=== PATIENT | male | born 1970 | race Caucasian/White ===

== ENCOUNTER 2020-05-07 08:24 | Day surgery (SDC) | payer OTHER ==
[2020-05-05 09:39] VITALS: BMI 28.5
--- NOTE | 2020-05-07 07:48 | P.GSHP ---
History of Present Illness H&P Date: 05/07/20 CHIEF COMPLAINT: Chest wall cancer HISTORY OF PRESENT ILLNESS: The patient is a 50 year-old male with history of cancer along the chest wall lesion. He presents today for surgical excision. PAST MEDICAL HISTORY: Please see list. PAST SURGICAL HISTORY: Please see list. MEDICATIONS: Please see list. ALLERGIES: Please see list. SOCIAL HISTORY: No illicit drug use FAMILY HISTORY: No reports of Crohn disease or ulcerative colitis. REVIEW OF ORGAN SYSTEMS: CONSTITUTIONAL: No reports of fevers or chills. GI: Denies any blood in stools or constipation. PHYSICAL EXAM: VITAL SIGNS: Stable SKIN: Well perfused. Good skin turgor. 1 cm lesion overlying the left chest wall. Musculoskeletal: No clubbing cyanosis or edema GENERAL: Well developed and in no acute distress. Pleasant. HEENT: No sclera icterus. Extraocular movements grossly intact. Moist buccal mucosa. Head is atraumatic, normocephalic. Hears conversational speech. No nasal drainage. NECK: Supple without lymphadenopathy. No JV distention. CHEST: Non-labored respirations and equal bilateral excursions. CARDIOVASCULAR: Regular rate and rhythm. Palpable 2+ radial pulses. ABDOMEN: Soft. Non-tender. Nondistended. NEUROLOGIC: No focal or lateralizing signs. PSYCH: Appropriate affect. Alert and oriented to person, place and time. ASSESSMENT: 1. Left chest wall cancer PLAN: 1. Will proceed of excision of the left chest wall 2. DVT prophylaxis. 3. Antibiotic prophylaxis. 4. Time of recovery, at least one week. Past Medical History Past Medical History: Cancer, GERD/Reflux, Hypertension Additional Past Medical History / Comment(s): migraines. BASAL CELL CANCER CHEST AREA. SURFACE BLOOD CLOTS IN VARICOSE VEINS History of Any Multi-Drug Resistant Organisms: None Reported Past Surgical History: No Surgical Hx Reported Additional Past Surgical History / Comment(s): COLONOSCOPY Past Anesthesia/Blood Transfusion Reactions: No Reported Reaction Smoking Status: Former smoker - Past Family History Mother Family Medical History: No Reported History Additional Family Medical History / Comment(s): ADOPTED Medications and Allergies Home Medications Medication Instructions Recorded Confirmed Type Cholecalciferol [Vitamin D3 (25 1,000 unit PO DAILY 05/05/20 05/05/20 History Mcg = 1000 Iu)] Fexofenadine HCl [Chaparrita Allergy] 180 mg PO DAILY 05/05/20 05/05/20 History Losartan [Cozaar] 50 mg PO DAILY 05/05/20 05/05/20 History Magnesium Oxide [Mag-Ox] 250 mg PO DAILY 05/05/20 05/05/20 History Omeprazole [PriLOSEC] 40 mg PO DAILY 05/05/20 05/05/20 History Topiramate [Topamax] 100 mg PO DAILY 05/05/20 05/05/20 History Allergies Allergy/AdvReac Type Severity Reaction Status Date / Time adhesive tape Allergy SKIN Verified 05/05/20 09:41 BLISTERS bee venom protein (honey bee) Allergy Anaphylaxis Verified 05/05/20 09:41
[~2020-05-07 08:24] MED LIST: ACETAMINOPHEN TAB 500 MG TAB PO STA; DEXAMETHASONE SOD PHOSPHATE 10 MG/ML 1 ML VIAL IV ONE; GABAPENTIN 300 MG CAP PO STA; HYDROmorphone 0.5 MG/0.5 ML SYRINGE IVP PRN; LACTATED RINGERS 1,000 ML IV SCH; ONDANSETRON 4 MG/2 ML VIAL IVP ONE; Pre Op ABX Message 1 EACH MISC MISCELLANE ONE
[2020-05-07] MEDS ORDERED: ONDANSETRON 4 MG/2 ML VIAL ONE (09:13)
[2020-05-07] MEDS ORDERED: ACETAMINOPHEN TAB 500 MG TAB ONE (09:13)
[2020-05-07 09:52] LABS: Basophils % (A) 1 %; Eosinophils # (A) 0.1 k/uL (0-0.7); Eosinophils % (A) 2 %; HGB 14.3 gm/dL (13.0-17.5); Lymphocytes # (A) 2.1 k/uL (1.0-4.8); Lymphocytes % (A) 30 %; MCH 30.7 pg (25.0-35.0); MCHC 33.4 g/dL (31.0-37.0); MCV 91.9 fL (80.0-100.0); Mean Platelet Volume 8.9; Monocytes # (A) 0.4 k/uL (0-1.0); Monocytes % (A) 6 %; Neutrophils # (A) 4.3 k/uL (1.3-7.7); Neutrophils % (A) 61 %; Platelet Count 286 k/uL (150-450); RBC 4.68 m/uL (4.30-5.90); RDW 12.9 % (11.5-15.5); WBC 7.2 k/uL (3.8-10.6)
[2020-05-07] MEDS ORDERED: PROPOFOL 10 MG/ML 20 ML VIAL IV ONE (10:19)
[2020-05-07] MEDS ORDERED: fentaNYL (PF) 50 MCG/ML 2 ML AMP ONE (10:19)
[2020-05-07] MEDS ORDERED: LIDOCAINE 1% INJ 10MG/ML (20 ML MDV) ONE (10:19)
[2020-05-07] MEDS ORDERED: DEXAMETHASONE SOD PHOSPHATE 10 MG/ML 1 ML VIAL ONE (10:19)
[2020-05-07] MEDS ORDERED: KETOROLAC 30 MG/ML 1 ML VIAL ONE (10:19)
[2020-05-07] MEDS ORDERED: MIDAZOLAM 2 MG/2 ML VIAL ONE (10:19)
[2020-05-07] MEDS ORDERED: diphenhydrAMINE 50 MG/ML 1 ML VIAL ONE (10:19)
[2020-05-07] MEDS ORDERED: BUPIVACAIN-EPI 0.25%-1:200,000 30 ML VIAL SQ ONE (10:47)
--- NOTE | 2020-05-07 11:42 | P.OP ---
Date of Procedure: 05/07/20 Description of Procedure: SURGEON: TIKA RUBIN MD OPTION TRADER: None. PREOPERATIVE DIAGNOSES: 1. Basal cell cancer, left chest wall 2. Gastroesophageal reflux disease 3. Hypertensive heart disease POSTOPERATIVE DIAGNOSES: 1. Basal cell cancer, left chest wall 2. Gastroesophageal reflux disease 3. Hypertensive heart disease PROCEDURES PERFORMED: 1. Excision of left chest wall basal cell cancer with margins, 10 x 4 cm. 2. Complex closure of 10 cm incision along the chest wall. ANESTHESIA: GETA and local ESTIMATED BLOOD LOSS: 20 mL. SPECIMENS REMOVED: Left chest wall basal cell cancer, short superior, long medial COMPLICATIONS: None. INDICATIONS: The patient is a 50-year-old male who presents with biopsy-proven basal cell cancer of the chest wall. Now he presents for surgical intervention. Benefits and risks of surgical intervention were described including bleeding, recurrence, infection, scarring, cosmetic deformity reviewed. Informed consent was obtained. DESCRIPTION OR PROCEDURE: Patient was brought into the operating room, laid in supine position. After general induction, the chest was prepped and draped in a standard sterile fashion with ChloraPrep. Timeout protocol was confirmed with the surgical team regarding the patient's name, procedure to be performed including preoperative medications. DVT prophylaxis was confirmed. A field block was placed of the left chest wall just inferior to the clavicle after indelible marker placing margins of 0.5-1 cm. For complete excision with closure, measurement 10 x 4 cm elliptical excision was proposed. An elliptical transverse incision using #15 blade was made along the marking into the dermis and subcutaneous tissue. Electro-Bovie cartridge was used to excise the lesion down to the simultaneous tissue. Superior and inferior subcutaneous skin flaps were made for undermining for closure without tension. Deep subcutaneous tissue closure #1 Vicryl followed by 3-0 Vicryl was placed in interrupted fashion. Running suture of 4-0 Monocryl was placed along the dermis. The skin was cleansed and Exofin tape was applied followed by Optifoam. Local anesthetic was placed. At the end of the procedure, needle, sponge, and instrument count was verified correct by surgical scrub technician. The patient was awoken and taken to the second stage postanesthesia care unit. The patient tolerated the procedure well. FINDINGS: 1. Basal cell cancer proven lesion along left chest wall excised with margins 0.5-1 cm, 10 cm x 4 cm 2. Specimen oriented long medial, short superior Plan - Discharge Summary Discharge Rx Participant: No New Discharge Prescriptions: Continue Fexofenadine HCl [Chaparrita Allergy] 180 mg PO DAILY Cholecalciferol [Vitamin D3 (25 Mcg = 1000 Iu)] 1,000 unit PO DAILY Omeprazole [PriLOSEC] 40 mg PO DAILY Losartan [Cozaar] 50 mg PO DAILY Topiramate [Topamax] 100 mg PO DAILY Magnesium Oxide [Mag-Ox] 250 mg PO DAILY Discharge Medication List Cholecalciferol [Vitamin D3 (25 Mcg = 1000 Iu)] 1,000 unit PO DAILY 05/05/20 [History] Fexofenadine HCl [Chaparrita Allergy] 180 mg PO DAILY 05/05/20 [History] Losartan [Cozaar] 50 mg PO DAILY 05/05/20 [History] Magnesium Oxide [Mag-Ox] 250 mg PO DAILY 05/05/20 [History] Omeprazole [PriLOSEC] 40 mg PO DAILY 05/05/20 [History] Topiramate [Topamax] 100 mg PO DAILY 05/05/20 [History] Patient Instructions/Handouts: *Surgery [facility] - (Anesthesia) Discharge Instructions Outpatient Surgery, Excision of Skin Lesion (DC) Activity/Diet/Wound Care/Special Instructions: Do not remove dressing. May shower. No bath tub soaks. No wide motions of the left arm. Dressings will be removed in the office Discharge Disposition: HOME SELF-CARE
[2020-05-08 08:38] VITALS: BP 116/80; PULSE 52; RESP 16; TEMP 97.5
== END 2020-05-07 12:52 | disposition home or self-care (01) ==
LOC: OR 08:24
PROVIDERS: ATTEND Surgery Plastic and Reconstructive Surgery
DX: C44.519 Basal cell carcinoma of skin of other part of trunk (principal); I11.9 Hypertensive heart disease without heart failure; K21.9 Gastro-esophageal reflux disease without esophagitis; G43.909 Migraine, unspecified, not intractable, without status migrainosus; I83.90 Asymptomatic varicose veins of unspecified lower extremity; Z91.048 Other nonmedicinal substance allergy status; Z91.030 Bee allergy status; Z87.891 Personal history of nicotine dependence; Z79.899 Other long term (current) drug therapy; Z98.890 Other specified postprocedural states
CPT/HCPCS: 88305; 85025; 11606; 13101; 13102; J2250; J1200; J1100; J0690; J2405; J2001; J3010; J1885; J2704

== ENCOUNTER → 2020-11-04 | Outpatient (CLI) | payer OTHER ==
--- NOTE | 2020-11-05 07:17 | MR ---
EXAMINATION TYPE: MR brain wo/w maiteine wo DATE OF EXAM: 11/04/2020 COMPARISON: CT brain and cervical spine April 06, 2015 HISTORY: Worsening Migraine headaches and neck pain. TECHNIQUE: Multiplanar, multisequence images of the brain and brainstem is performed without and with IV contras t, utilizing 9.5 mL intravenous Gadavist . MRI cervical spine without contrast. FINDINGS: Brain: Diffusion weighted images demonstrate no evidence of a recent infarct or other diffusion abnormality. There is no worrisome extra-axial fluid collection. The ventricular system and cisternal spaces ar e normal in size and appearance. The brain volume is age appropriate. A few small scattered foci of T2 hyperintensity is seen throughout the white matter bilaterally. Approximately 20 scattered lesions are seen. Lesions are nonspecific in appearance and distribution. Midline structures demonstrate normal morphology. The craniocervical junction appears within normal limits. Post contrast images demonstrate no abnormal enhancement. The dural venous sinuses appear pa tent. Large mucous retention cyst or polyp in the inferior right maxillary sinus otherwise paranasal sinuses are clear. Globes are intact bilaterally. IMPRESSION: Mild to borderline moderate nonspecific white matter changes. Findings could be on the ba sis of altered vascular mechanics related to product of migraine headaches. Chronic right maxillary s inus disease. No suspicious enhancement. C-SPINE: FINDINGS: Slight dextroconvex scoliotic curvature centered in the upper thoracic spine is redemonstra princess on coronal images. Sagittal images of the cervical spine show the craniocervical junction to han in within normal limits. The cervical and upper thoracic spinal cord is normal in caliber and signal . Vertebral alignment is satisfactory on sagittal images. The vertebral body and intravertebral disk heights remain normal. The bone marrow signal intensity is within normal limits. Axial images show there is no significant focal disk disease, spinal canal stenosis, neural foraminal narrowing, or spinal cord compromise at any cervical level. IMPRESSION: Slight scoliotic curvature otherwise unremarkable study.
== END | disposition home or self-care (01) ==
LOC: RADMRIMAIN 16:53
PROVIDERS: ATTEND Physician Assistant
DX: R90.82 White matter disease, unspecified (principal); J32.0 Chronic maxillary sinusitis; M41.82 Other forms of scoliosis, cervical region; Z91.018 Allergy to other foods; Z91.02 Food additives allergy status
CPT/HCPCS: 70553; 72141; A9585

== ENCOUNTER → 2021-10-21 | Outpatient (CLI) | payer OTHER ==
--- NOTE | 2021-10-21 11:13 | XR ---
EXAMINATION TYPE: XR shoulder complete 3 views LT, XR humerus 2 views LT DATE OF EXAM: 10/21/2021 Comparison: None Clinical History: 51-year-old male R22.30 L upper extremity mass Findings: Left shoulder: AC joint appears intact. Subacromial space is preserved. No tendinous or bursal calcifications. No ac kristi fracture, subluxation, or dislocation. Visualized left hemithorax is clear. Left humerus: No acute fracture. Elbow articulation appears intact. No elbow joint effusion. No soft tissue calcifi cations are identified. IMPRESSION (left shoulder and humerus): No acute osseous abnormality seen. If concern for a soft tissue mass, consider targeted ultrasound.
== END | disposition home or self-care (01) ==
LOC: RADXRMAIN 08:19
PROVIDERS: ATTEND Physician Assistant
DX: R22.30 Localized swelling, mass and lump, unspecified upper limb (principal)

== ENCOUNTER → 2021-11-18 | Outpatient (CLI) | payer OTHER ==
--- NOTE | 2021-11-18 08:08 | CT ---
EXAMINATION TYPE: CT chest wo con DATE OF EXAM: 11/18/2021 COMPARISON: Chest CT April 06, 2015 HISTORY: Chest Pain CT DLP: 614.6 mGycm. Automated Exposure Control for Dose Reduction was Utilized. TECHNIQUE: CT scan of the thorax is performed without IV contrast. FINDINGS: LUNGS: Peripheral bleb right upper lung axial image 19 is stable. No new suspicious focal consolidati on or groundglass opacity. Stable 6 mm ground glass nodule medial right lower lobe axial image 54 pr esumed benign given stability since 2015 study. Just superior and to the right of this there is stabl e 4 mm right lower lobe nodule axial image 49. Stable 2 to 3 mm right middle lobe nodule axial image 41. No new greater than 5 mm pulmonary nodules are present. There is no pleural effusion or pneumotho rax seen. The tracheobronchial tree is patent. MEDIASTINUM: Lack of IV contrast is noted to limit evaluation for mediastinal and especially hilar ad enopathy. There are no definitive new Greater than 1 cm mediastinal lymph nodes. No cardiomegaly or pericardial effusion is seen. Mild to moderate focal calcified plaque in the LAD is more prominent f rom 2014 study. Correlate with additional cardiac risk factors. OTHER: Roughly 9 mm thin-walled cyst in the liver axial image 61 is stable. Mild multilevel spurring in the spine. IMPRESSION: No acute findings are evident.
[2021-11-18 08:35] LABS: HCT 47.8 % (39.0-53.0); HGB 15.6 gm/dL (13.0-17.5); MCH 30.6 pg (25.0-35.0); MCHC 32.7 g/dL (31.0-37.0); MCV 93.8 fL (80.0-100.0); Mean Platelet Volume 7.6; Platelet Count 284 k/uL (150-450); RBC 5.09 m/uL (4.30-5.90); RDW 12.7 % (11.5-15.5); WBC 6.7 k/uL (3.8-10.6)
[2021-11-18 17:51] LABS: African American GFR (CKD) 90.2 (60.0-200.0); Carbon Dioxide 19.3 mmol/L (20.0-27.5); Glucose 100 mg/dL (70-110); Non-African American GFR(CKD) 77.9 (60.0-200.0); Potassium 4.4 mmol/L (3.5-5.5); Sodium 141 mmol/L (135-145)
[2021-11-18 19:48] LABS: ALT 24 U/L (10-49); AST 18 U/L (14-35)
[2021-11-18 20:07] LABS: Rheumatoid Factor, Qnt <10 IU/mL (0-15)
== END | disposition home or self-care (01) ==
LOC: RADCTMAIN 07:17
PROVIDERS: ATTEND Physician Assistant
DX: R07.9 Chest pain, unspecified (principal)
CPT/HCPCS: 71250; 82247; 82374; 82565; 82947; 83036; 83718; 83721; 84132; 84295; 84450; 84460; 84478; 85027; 86431

== ENCOUNTER → 2021-12-10 | Outpatient (CLI) | payer OTHER ==
--- NOTE | 2021-12-10 15:56 | MR ---
EXAMINATION TYPE: MR shoulder LT wo con DATE OF EXAM: 12/10/2021 COMPARISON: Plain film 10/21/2021 HISTORY: Left shoulder pain and lack of movement TECHNIQUE: Multiplanar, multisequence imaging of the left shoulder is performed without contrast. FINDINGS: Rotator Cuff: There is increased signal at the intrasubstance portion of the supraspinatus tendon, co benjie image #16 and 15 suggesting partial undersurface tear. Acromioclavicular Joint: Arthropathy of the acromioclavicular joint causes mass effect on the musculo tendinous junction of supraspinatus. There is a distal acromial spur. Glenohumeral Joint: Intact Labrum: Posterior labrum on axial image #16 and 17 shows some fluid signal suggesting tear Biceps Tendon: The long head of biceps is in normal location within bicipital groove, fluid signal is present along the tendon. Bone marrow signal: Pseudocysts are present within the humeral head. Other: Inferior glenohumeral ligament shows abnormal signal, likely at least partially torn. Fluid si gnal is present in the subacromial subdeltoid bursa. IMPRESSION: Findings consistent with partial undersurface tear the rotator cuff. Inferior glenohumeral ligament t ear. Small tear of the posterior glenoid labrum. Correlate for impingement.
== END | disposition home or self-care (01) ==
LOC: RADMRIMAIN 07:44
PROVIDERS: ATTEND Physician Assistant
DX: M75.112 Incomplete rotator cuff tear or rupture of left shoulder, not specified as traumatic (principal)

== ENCOUNTER → 2022-01-07 | Outpatient (CLI) | payer OTHER ==
--- NOTE | 2022-01-07 12:15 | MR ---
MRI left brachial plexus with and without contrast HISTORY: Injury to brachial plexus, left shoulder pain, frozen shoulder correlation to MRI left shoulder Multiplanar multisequence and postcontrast images obtained through the brachioplexus on 10 cc Gadavis t IV. Review of the left shoulder MRI does show cortical humeral ligament thickening which can be seen in a dhesive capsulitis consistent with patient's history of frozen shoulder Extensive artifact is present over the exam No evident mass along the brachial plexus. No evident abnormal hyperintensity and T2-weighted sequenc es. No abnormal enhancement. No evident abnormal fluid collections to suggest pseudomeningocele. No c ervical adenopathy or supraclavicular adenopathy evident. There is no evident apical tumor at the lef t hemithorax. Arthropathy noted at the acromioclavicular joint on the left. IMPRESSION: Findings consistent with patient's history of frozen shoulder. No brachial plexus abnorma lity is evident within the limitation of the exam.
== END | disposition home or self-care (01) ==
LOC: RADMRIMAIN 07:47
PROVIDERS: ATTEND Physician Assistant
DX: S14.3XXA Injury of brachial plexus, initial encounter (principal); X58.XXXA Exposure to other specified factors, initial encounter
CPT/HCPCS: 71552; A9585

== ENCOUNTER → 2022-05-05 | Outpatient (CLI) | payer OTHER ==
[2022-05-05 16:16] LABS: Basophils # (A) 0.04 X 10*3/uL (0.00-0.10); Basophils % (A) 0.6 %; Eosinophils # (A) 0.15 X 10*3/uL (0.04-0.35); Eosinophils % (A) 2.2 %; HCT 44.9 % (39.6-50.0); HGB 14.2 g/dL (13.0-17.0); Immature Grans, Automated 0.3 %; Lymphocytes # (A) 2.05 X 10*3/uL (0.90-5.00); Lymphocytes % (A) 29.8 %; MCH 28.9 pg (27.0-32.0); MCHC 31.6 g/dL (32.0-37.0); MCV 91.4 fL (80.0-97.0); Mean Platelet Volume 11.5 fL (9.5-12.2); Monocytes # (A) 0.49 X 10*3/uL (0.20-1.00); Monocytes % (A) 7.1 %; NRBC Per 100 WBC 0 /100 WBCS (0.0-0.0); Neutrophils # (A) 4.13 X 10*3/uL (1.80-7.70); Platelet Count 339 X 10*3/uL (140-440); RBC 4.91 X 10*6/uL (4.40-5.60); RDW 13.5 % (11.5-14.5); WBC 6.88 X 10*3/uL (4.50-10.00)
[2022-05-05 17:06] LABS: Anion Gap 12.7 mmol/L (10.00-18.00); Carbon Dioxide 22.1 mmol/L (20.0-27.5); Potassium 4.2 mmol/L (3.5-5.5)
== END | disposition home or self-care (01) ==
LOC: LABWHC1 08:40
PROVIDERS: ATTEND Orthopaedic Surgery
DX: Z01.812 Encounter for preprocedural laboratory examination (principal); M75.42 Impingement syndrome of left shoulder
CPT/HCPCS: 36415; 80051; 85025; 93005

== ENCOUNTER 2022-05-19 07:16 | Day surgery (SDC) | payer OTHER ==
[2022-05-17 15:58] VITALS: BMI 28.5
--- NOTE | 2022-05-18 15:35 | HP ---
HISTORY AND PHYSICAL Carlos Eduardo Madrid a 52-year-old patient seen with progressive left shoulder pain. We discussed options for treatment. He elected to proceed with left shoulder arthroscopy. Consent obtained. PAST MEDICAL HISTORY: Hypertension. PAST SURGICAL HISTORY: Surgical history is noncontributory. DAILY MEDICATIONS: Losartan. ALLERGIES: ADHESIVES. SOCIAL HISTORY: He denies tobacco use. PHYSICAL EVALUATION OF THE LEFT SHOULDER: Flexion is 100 degrees, abduction is 80 degrees. External rotation is 25 degrees with pain and weakness. Tenderness along the anterior lateral acromion and acromioclavicular joint as well as rotator cuff insertion site. Impingement positive 80 degrees. Drop-arm sign is positive. Cross-body adduction sign is positive. Distal neurovascular exam is intact. RADIOGRAPHS: Radiographs of the left shoulder reveal a type 2 acromion, acromioclavicular joint osteoarthritis and cystic changes of the tuberosity. MRI left shoulder partial rotator cuff tear, acromioclavicular joint osteoarthritis and labral tear. IMPRESSION: 1. Left shoulder impingement with partial rotator cuff tear. 2. Left shoulder acromioclavicular joint osteoarthritis. 3. Left shoulder labral tear. 4. Hypertension. PLAN: Left shoulder arthroscopy with subacromial decompression, possible arthroscopic rotator cuff repair, Waylon procedure and debridement. Surgery scheduled for 05/19/2022. MMODL / IJN: [id number] /
[2022-05-19] MEDS ORDERED: ONDANSETRON 4 MG/2 ML VIAL ONE (07:39)
[2022-05-19] MEDS ORDERED: ONDANSETRON 4 MG/2 ML VIAL IVP ONE (07:47)
[2022-05-19] MEDS ORDERED: LACTATED RINGERS 1,000 ML IV SCH (07:47)
[2022-05-19] MEDS ORDERED: DEXAMETHASONE SOD PHOSPHATE 4 MG/ML 1 ML VIAL IV ONE (07:47)
[2022-05-19] MEDS ORDERED: LIDOCAINE 1% (10MG/ML) FOR IV START INTRADERMA PRN (07:47)
[2022-05-19] MEDS ORDERED: METOCLOPRAMIDE 5 MG/ML 2 ML VIAL IVP PRN (07:47)
[2022-05-19] MEDS ORDERED: KETAMINE 10 MG/ML 20 ML VIAL ONE (09:12)
[2022-05-19] MEDS ORDERED: fentaNYL (PF) 50 MCG/ML 2 ML AMP ONE (09:12)
[2022-05-19] MEDS ORDERED: SUCCINYLCHOLINE CHLORIDE 100 MG/5 ML SYR IV ONE (09:12)
[2022-05-19] MEDS ORDERED: KETOROLAC 15 MG/ML 1 ML VIAL ONE (09:12)
[2022-05-19] MEDS ORDERED: LIDOCAINE 2% INJ 20 MG/ML (2 ML VIAL) ONE ×2 (09:12)
[2022-05-19] MEDS ORDERED: PROPOFOL 10 MG/ML 20 ML VIAL IV ONE (09:12)
[2022-05-19] MEDS ORDERED: MIDAZOLAM 2 MG/2 ML VIAL ONE (09:12)
[2022-05-19] MEDS ORDERED: HYDROmorphone (PF) 1 MG/ML ONE (09:12)
--- NOTE | 2022-05-19 10:39 | P.OP ---
Date of Procedure: 05/19/22 Preoperative Diagnosis: Left shoulder impingement Postoperative Diagnosis: 1. Left shoulder rotator cuff tear 2. Left shoulder impingement Procedure(s) Performed: 1. Left shoulder arthroscopic rotator cuff repair 2. Left shoulder arthroscopic subacromial decompression Implants: 14.75 Arthrex swivel lock anchor Anesthesia: GETA, regional (Interscalene block) Surgeon: Mookie Andrade Professor Of Art History #1: Titi Cortez Estimated Blood Loss (ml): 10 Pathology: none sent Condition: stable Disposition: PACU Indications for Procedure: 52-year-old patient seen with progressive left shoulder pain. After treatment options were discussed, he elected to proceed with arthroscopy. Operative Findings: See description of procedure Description of Procedure: Patient underwent an interscalene block by department of anesthesia. The patient was then taken to the operative suite. The patient underwent a general anesthetic by the department of anesthesia. The patient was placed into a lateral position and secured. There was appropriate padding of the bony prominence. Left shoulder was then prepped and draped in normal sterile orthopedic fashion. We placed the extremity in 10 pounds of longitudinal traction. A posterior incision was now made for a posterior working portal site. The trocar and cannula were inserted into the glenohumeral joint. Arthroscopy was initiated. Spinal needle was now inserted anteriorly, to ascertain the anterior working portal site. An incision was now made in that area, a trocar was inserted followed by a probe. The labrum was probed and was found to be stable. There were some grade 1 chondromalacia changes of the humeral head. The biceps was stable. Instruments were now removed from glenohumeral joint. Utilizing the posterior working portal site, the trocar and cannula were inserted into the subacromial space. Arthroscopy initiated. I made an incision 2 fingerbreadths lateral to the acromion. I introduced my trocar followed by my ArthroCare ablator. I now began ablating thick subacromial bursal tissue, which exposed the undersurface of the anterior acromion. There was diminished subacromial space. There was a very prominent anterior acromion. A motorized bur was introduced and a subacromial decompression was performed. I also excised some osteophytes off the inferior aspect of the distal clavicle. The AC joint was visualized and noted to be moderately arthritic. I did not think enough toward a Waylon procedure. I turned my attention to the rotator cuff tendon. There was a full-thickness perforation along the distal supraspinatus tendon. I debrided the margins getting down to stable tendon tissue. The tear/defect measured proximal 0.5 cm and was freely mobile over the footprint. I abraded the footprint with a motorized bur. With the assistance of Adeel RESTREPO a past 3 everted mattress sutures through good bites of rotator cuff tendon. I now punched a hole in the footprint area for insertion of an anchor. All 6 limbs of suture were now passed through the eyelet of a 4.75 Arthrex swivel lock anchor. I now placed the eyelet into the pre-punched hole. I held it in position while Adeel RESTREPO tensioned all 6 suture limbs and deployed the anchor with good fixation noted. All residual suture limbs were now clipped. We had good compression of the tendon along the entire footprint. Instruments now removed from the portal sites. All portal sites were approximated with nylon suture. Sterile dressings were applied followed by a shoulder sling. Titi RESTREPO assisted in this complex case. The patient was awakened, transferred to a bed, and taken to recovery in stable condition.
[2022-05-19 10:53] VITALS: TEMP 97
[2022-05-19] MEDS: HYDROmorphone 0.5 MG/0.5 ML SYRINGE IVP PRN ×3 (10:57→11:03)
[2022-05-19] MEDS ORDERED: HYDROmorphone 0.5 MG/0.5 ML SYRINGE IVP ONE (11:18)
[2022-05-19] MEDS ORDERED: HYDROcodone/APAP 7.5-325MG 1 EACH TAB ONE (11:50)
[2022-05-19] MEDS ORDERED: HYDROcodone/APAP 7.5-325MG 1 EACH TAB PO ONE (11:52)
[2022-05-19 11:56] VITALS: RESP 16
[2022-05-19 12:46] VITALS: PULSE 57
[2022-05-19 13:42] VITALS: BP 108/69
== END 2022-05-19 14:01 | disposition home or self-care (01) ==
LOC: OR 07:16
PROVIDERS: ATTEND Orthopaedic Surgery
DX: M75.42 Impingement syndrome of left shoulder (principal); M75.122 Complete rotator cuff tear or rupture of left shoulder, not specified as traumatic; M94.212 Chondromalacia, left shoulder; M25.712 Osteophyte, left shoulder; M19.012 Primary osteoarthritis, left shoulder; I10 Essential (primary) hypertension; Z79.899 Other long term (current) drug therapy; Z91.09 Other allergy status, other than to drugs and biological substances; K21.9 Gastro-esophageal reflux disease without esophagitis; G43.909 Migraine, unspecified, not intractable, without status migrainosus; Z87.891 Personal history of nicotine dependence; Z91.030 Bee allergy status
CPT/HCPCS: 29827; 29826; C1713 ×2; J2250; J1100; J0690; J2405; J3010; J1170 ×2; J1885; J0330; J2704; J2001